=== PATIENT | female | born 1995 | race Two or more races ===

== ENCOUNTER 2019-05-26 11:25 | Emergency (ER) | payer OTHER ==
[~2019-05-26] VITALS: Ht 165.1 cm; Wt 78.0 kg
[2019-05-26 11:28] VITALS: BP 118/67
--- NOTE | 2019-05-26 11:43 | NUR ---
PT REPORTS NEW REDNESS AND ITCHING SKIN ON RIGHT SIDE OF NECK, TORSO, IN BETWEEN THIGHS. DENIES NEW DETERGENT, NEW DIET, NEW MEDS.
== END 2019-05-26 12:00 | disposition home or self-care (01) ==
LOC: ED 11:52
DX: O26.891 Other specified pregnancy related conditions, first trimester (principal); L50.9 Urticaria, unspecified; Z3A.01 Less than 8 weeks gestation of pregnancy
CPT/HCPCS: 99283

== ENCOUNTER 2019-05-31 13:55 | Emergency (ER) | payer OTHER ==
[~2019-05-31] VITALS: Ht 165.1 cm; Wt 77.8 kg
[2019-05-31 14:21] VITALS: BP 116/59
[2019-05-31] MEDS ORDERED: FAMOTIDINE 20 MG TABLET PO ONE (15:00)
[2019-05-31] MEDS ORDERED: DIPHENHYDRAMINE 50 MG/ML, 1ML IM ONE (15:00)
[2019-05-31] MEDS ORDERED: FAMOTIDINE 20 MG TABLET ONE (15:18)
[2019-05-31] MEDS ORDERED: DIPHENHYDRAMINE 50 MG/ML, 1ML ONE (15:18)
== END 2019-05-31 16:21 | disposition home or self-care (01) ==
LOC: ED 16:15
DX: O99.711 Diseases of the skin and subcutaneous tissue complicating pregnancy, first trimester (principal); Z3A.01 Less than 8 weeks gestation of pregnancy
CPT/HCPCS: 96372; 99283; J1200

== ENCOUNTER 2020-05-20 10:59 | Emergency (ER) | payer OTHER ==
[~2020-05-20] VITALS: Ht 165.1 cm; Wt 86.5 kg
--- NOTE | 2020-05-20 11:48 | NUR ---
[employer]: PT AMBULATORY TO ROOM FROM [facility]. L&D NOTIFIED, TALKED WITH DEMOND
--- NOTE | 2020-05-20 11:48 | NUR ---
PT TO ROOM FROM LOBBY
--- NOTE | 2020-05-20 11:49 | NUR ---
INITIAL PT CONTACT. PT PRESENTS TO ED C/O SORE THROAT AND "CHEST MCGRAW OR ACID REFLUX". PT IS 25 WEEKS . PT SITTING UPRIGHT ON GURNEY, NAD, VSS. PT DENIES ANY NEEDS AT THIS TIME. CALL LIGHT AND PERSONAL BELONGINGS WITHIN REACH.
--- NOTE | 2020-05-20 11:56 | NUR ---
L&D AT BEDSIDE FOR EVAL
--- NOTE | 2020-05-20 12:24 | NUR ---
BREAK RN: VSS NO NEEDS AT THIS TIME
[2020-05-20 13:03] VITALS: BP 105/53
--- NOTE | 2020-05-20 13:04 | NUR ---
Patient given discharge instructions and they have confirmed that they understand the instructions. Patient ambulatory with steady gait.
== END 2020-05-20 13:05 | disposition home or self-care (01) ==
LOC: ED 12:17
DX: O26.892 Other specified pregnancy related conditions, second trimester (principal); Z20.828 Contact with and (suspected) exposure to other viral communicable diseases; J02.8 Acute pharyngitis due to other specified organisms; R07.89 Other chest pain; Z3A.26 26 weeks gestation of pregnancy
CPT/HCPCS: 87635; 99283